=== PATIENT | female | born 1980 | race Caucasian/White ===

== ENCOUNTER 2018-03-18 10:39 | Emergency (ER) | payer OTHER, SELFPAY ==
[2018-03-18 10:40] VITALS: BP 114/80; PULSE 105; RESP 18; TEMP 38.8; O2SAT 96; BMI 24.5
--- NOTE | 2018-03-18 11:03 | RAD_ITS ---
STUDY: X-RAY CHEST REASON FOR EXAM: Female, 37 years old. Back pain. Patient not feeling well TECHNIQUE: Single AP portable view of the chest. COMPARISON: None. FINDINGS: The lungs are clear and expanded. There is no demonstrated pleural abnormality. Normal size heart. Normal mediastinum and romel. Normal visualized pulmonary arteries. Normal visualized aortic arch and descending thoracic aorta. Normal visualized thoracic spine. Normal visualized ribs, clavicles, and shoulders. There is no demonstrated abnormality of the visualized soft tissue structures of the upper abdomen. RAD/Chest 1 View (Portable) IMPRESSION: Normal x-ray examination of the chest. Electronically Signed: Tommy Villegas MD at 11:34 EST , Service support ,
--- NOTE | 2018-03-18 11:05 | ED.VISSUMM ---
- ER Visit Summary Date of Service: 03/18/18 Chief Complaint: Right back pain History of Present Illness: The patient is a 37 F who was sent from urgent care for multiple symptoms. The patient woke up at 4M with right side back pain, nausea, vomiting, chills. She has had a cough for a week. Occasional sputum. Some urinary frequency but no other urinary symptoms. No other GI symptoms. No chest pain or shortness of breath. She tried Motrin and Phenergan already with minimal relief. She did have a pulse ox at the urgent care in the 80s on room air and was febrile there. She is otherwise healthy and takes control. Non-smoker. Physical Examination: Temperature 101.8 and heart rate 105. Otherwise vital signs unremarkable. Patient is alert and oriented. She appears uncomfortable and ill but not toxic or in acute distress. HEENT exam unremarkable. Heart regular. Lungs clear in all sanchez. Abdomen soft and nontender. Right CVA slightly tender to palpation. Skin appears normal. Test Results: Rapid flu, chest x-ray, urinalysis pending. Emergency Department Course and Treatment: Patient treated with Tylenol and Zofran while awaiting results. Urine shows an infection. Cultures were sent. She was treated with a dose of Rocephin. test was negative. Patient was requesting to go home. I advised her that given she has a UTI with a fever, I was concerned for sepsis. I did check blood work and gave her a liter of fluids. Her white count is 14, her potassium is 3.2 and BUN is 21. I reevaluated the patient, and she is feeling better. I explained that she has signs of sepsis. Sepsis can progress and become lethal. Patient voiced understanding and agreement. She would like to go home to attend family duties. She understands the risks. I advised her that we would start her on antibiotics. We will check a culture. She should return if she is getting sicker or having any problems. She would need reevaluation and possibly admission. Patient agreed and continued to decline admission. Treatment Plan: As above Disposition: Discharge Impression: 1. Acute right pyelonephritis This note was generated with [employer] software. It may contain incorrect words, spelling, and punctuation that were not noted in review of the chart prior to signing ED Disposition - Plan for ED Patient: Chief Complaint: Fever Referrals: Nuris Corona MD [STAFF PHYSICIAN] -
[2018-03-18] MEDS: Acetaminophen 500 MG Tablet 1000 MG PO (11:21)
[2018-03-18] MEDS: Ondansetron ODT 4 MG Tablet 8 MG PO (11:22)
[2018-03-18 11:33] LABS: Mucous, Urine 0 SEEN /hpf (<or=2+); Red Blood Cells-Urine 0 SEEN /hpf (0-5)
[2018-03-18 11:36] LABS: Color, Urine Yellow (Yellow); Glucose, Dipstick Normal (Normal); Ketone-Dipstick 15 mg/dl (Negative); Leukocyte Esterase-Dipstick 500 /ul (Negative); Nitrite-Dipstick Positive (Negative); Occult Blood-Urine 250 /ul (Negative); Protein-Dipstick 30 mg/dl (Negative); Specific Gravity, Urine 1.015 (1.002-1.030); Urine Bilirubin Dipstick Negative (Negative); Urine Clarity Cloudy (Clear); Urine Urobilinogen Normal (Normal)
[2018-03-18 11:42] LABS: Bacteria 3+ /hpf (None Seen); Squamous Epithelial Cells - UA 5-10 SEEN /hpf (5-10); White Blood Cells 50-100 SEEN /hpf (0-5)
[2018-03-18 11:43] LABS: Internal QC Validated? YES +Cl - CLEAR BKGD; Pregnancy, Urine Negative Negative
[2018-03-18 12:17] VITALS: TEMP 38.3
[2018-03-18] MEDS: traMADol 50 MG Tablet PO (12:34)
[2018-03-18] MEDS: Ceftriaxone 1 GM/50 ML BAG IV (13:15)
[2018-03-18] MEDS: 0.9% Normal Saline 1,000 ML 999 ML IV (13:15)
[2018-03-18 13:16] LABS: Absolute Lymphocyte Count 0.24 X10^3/ul (0.83-4.51); Absolute Neutrophil Count 12.7 X10^3/uL (2.0-7.7); Basophil# 0.01 X10^3/uL; Basophil% 0.1 % (0-1); Differential Indicated SCAN CRITERIA MET; Hematocrit 36.6 % (37-47); Hemoglobin 12.4 g/dl (12.0-15.0); Lymphocyte # 0.24 X10^3/ul (4.0); Lymphocyte % 1.7 % (19-41); Mean Corp Hgb Conc 33.9 g/gl (32-36); Mean Corpuscular Hgb 28.8 pg (27.0-32.0); Mean Corpuscular Volume 84.9 fL (81-99); Mean Platelet Vol. 9.5 fl (6.2-12.0); Monocyte# 1.08 X10^3/uL; Monocyte% 7.7 % (0-10); Neutrophil # 12.66 X10^3/uL (2.7-7.7); Neutrophil % 90.2 % (47-70); POSITIVE COUNT NO; POSITIVE DIFFERENTIAL YES; POSITIVE MORPHOLOGY NO; Platelet Count 216 K/mm3 (150-450); RBC Distribution Width CV 12.5 % (11.6-14.6); Red Blood Count 4.31 M/mm3 (4.2-5.4)
[2018-03-18 13:27] LABS: Anion Gap 9 (5-15); BUN 21 mg/dL (7-18); BUN/Creat Ratio 23.6 RATIO (10-20); Calcium,Total 8.8 mg/dL (8.5-10.1); Chloride 105 mmol/L (98-107); Creatinine, Serum 0.89 mg/dL (0.55-1.02); EST Glomerular Filtration Rate 75 mL/min (>60); Est Glom Filt Rate - Afr Amer 91 mL/min (>60); Estimated Creatinine Clearance 61.56 ml/min; Glucose 98 mg/dL (74-106); Potassium 3.2 mmol/L (3.5-5.1); Sodium Level 139 mmol/L (136-145)
--- NOTE | 2018-03-18 13:51 | ED.DEP ---
ED Disposition - Plan for ED Patient: Chief Complaint: Fever Instructions: Discharge Instructions for Pyelonephritis Prescriptions: Nitrofurantoin Macrocrystals [Macrobid] 100 mg PO Q12 #14 cap Referrals: Nuris Corona MD [STAFF PHYSICIAN] -
[2018-03-18 14:16] VITALS: BP 118/64; PULSE 72; RESP 16; TEMP 37.2; O2SAT 100
--- OUTSIDE RECORDS SUMMARY | 2018-05-11 22:54 | XMS RPT_ITS ---
:1980 Author Organization [facility] Care Team Providers Name Role Phone Nigel Power Attending Unavailable Julianne Medina Primary Care Unavailable PROBLEMS PROBLEMS No Problem Records FoundPROCEDURES PROCEDURES No Procedure Records FoundRESULTS RESULTS DISCHARGE INSTRUCTION Observed: 03/18/2018 Status: F Source: [place] 4:54 PM [facility] REPOSITORY [facility] Medical Records Department [address] [place] [address] Discharge Instruction 03/18/18 1351 MR#: [id number] Acct: [id number] Name: REMA BARKSDALE Rep #: [id number] : 1980 37 From: Nigel Power MD PCP: Julianne Medina DO Status: DEP ER ED Disposition - Plan for ED Patient: Chief Complaint: Fever Instructions: Discharge Instructions for Pyelonephritis Prescriptions: Nitrofurantoin Macrocrystals [Macrobid] 100 mg PO Q12 #14 cap Referrals: Nuris Corona MD [STAFF PHYSICIAN] - What to do if you have Problems For any increased pain, shortness of breath, bleeding, nausea or vomiting, chest pain, or any unexpected problems, contact your Primary Care Provider. Call [facility] ([phone]) or report to the closest Emergency Room. Call 911 if necessary. 03/18/18 2768 <Electronically signed by Nigel Power MD> Date Nigel Power MD Cosigner Signature (If Indicated): Date CC: Julianne Medina DO EMERGENCY DEPARTMENT Observed: 03/18/2018 Status: F Source: [place] SUMMARY 4:54 PM [facility] REPOSITORY [facility] Medical Records Department [address] [place] [address] Emergency Department Summary 03/18/18 1105 MR#: [id number] Acct: [id number] Name: REMA BARKSDALE Rep #: [id number] : 1980 37 From: Nigel Power MD PCP: Julianne Medina DO Status: DEP ER - ER Visit Summary Date of Service: 03/18/18 Chief Complaint: Right back pain History of Present Illness: The patient is a 37 F who was sent from urgent care for multiple symptoms. The patient woke up at 4M with right side back pain, nausea, vomiting, chills. She has had a cough for a week. Occasional sputum. Some urinary frequency but no other urinary symptoms. No other GI symptoms. No chest pain or shortness of breath. She tried Motrin and Phenergan already with minimal relief. She did have a pulse ox at the urgent care in the 80s on room air and was febrile there. She is otherwise healthy and takes control. Non-smoker. Physical Examination: Temperature 101.8 and heart rate 105. Otherwise vital signs unremarkable. Patient is alert and oriented. She appears uncomfortable and ill but not toxic or in acute distress. HEENT exam unremarkable. Heart regular. Lungs clear in all sanchez. Abdomen soft and nontender. Right CVA slightly tender to palpation. Skin appears normal. Test Results: Rapid flu, chest x-ray, urinalysis pending. Emergency Department Course and Treatment: Patient treated with Tylenol and Zofran while awaiting results. Urine shows an infection. Cultures were sent. She was treated with a dose of Rocephin. test was negative. Patient was requesting to go home. I advised her that given she has a UTI with a fever, I was concerned for sepsis. I did check blood work and gave her a liter of fluids. Her white count is 14, her potassium is 3.2 and BUN is 21. I reevaluated the patient, and she is feeling better. I explained that she has signs of sepsis. Sepsis can progress and become lethal. Patient voiced understanding and agreement. She would like to go home to attend family duties. She understands the risks. I advised her that we would start her on antibiotics. We will check a culture. She should return if she is getting sicker or having any problems. She would need reevaluation and possibly admission. Patient agreed and continued to decline admission. Treatment Plan: As above Disposition: Discharge Impression: 1. Acute right pyelonephritis This note was generated with [employer] dictation software. It may contain incorrect words, spelling, and punctuation that were not noted in review of the chart prior to signing ED Disposition - Plan for ED Patient: Chief Complaint: Fever Referrals: Nuris Corona MD [STAFF PHYSICIAN] - What to do if you have Problems For any increased pain, shortness of breath, bleeding, nausea or vomiting, chest pain, or any unexpected problems, contact your Primary Care Provider. Call [facility] ([phone]) or report to the closest Emergency Room. Call 911 if necessary. 03/18/18 1654 <Electronically signed by Nigel Power MD> Date Nigel Power MD Cosigner Signature (If Indicated): Date CC: Julianne Medina DO CBC W/DIFF, AUTOMATED Collected: 03/18/2018 Status: F Source: [place] 1:06 PM [facility] REPOSITORY TYPE CODE TESTS RESULT OUT OF RANGE REFERENCE UNITS LAB L100.1000 4.4-11.0 K/mm3 High WBC 14.0 LAB L100.1200 4.2-5.4 M/mm3 Normal RBC 4.31 LAB L100.1300 12.0-15.0 g/dl Normal HGB 12.4 LAB L100.1400 37-47 % Low HCT 36.6 LAB L100.1500 81-99 fL Normal MCV 84.9 LAB L100.1600 27.0-32.0 pg Normal MCH 28.8 LAB L100.1700 32-36 g/gl Normal MCHC 33.9 LAB L100.1810 11.6-14.6 % Normal RDW CV 12.5 LAB L100.1820 35.1-43.9 fl Normal RDW SD 38.0 LAB L100.1900 150-450 K/mm3 Normal PLT 216 LAB L100.2000 6.2-12.0 fl Normal MPV 9.5 LAB L100.2100 47-70 % High NEUT% 90.2 LAB L100.2200 19-41 % Low LY% 1.7 LAB L100.2300 0-10 % Normal MONO% 7.7 LAB L100.2400 0-5 % Normal EO% 0.0 LAB L100.2500 0-1 % Normal BASO% 0.1 LAB L100.2550 0.0-0.9 % Normal IM GRAN % 0.300 Result Comment: IG% - Immature Granulocytes (promyelocytes, myelocytes and metamyelocytes) > 1% indicates that a LEFT SHIFT is Present. LAB L100.2620 2.0-7.7 X10 3/uL High Absolute Neut 12.7 LAB L100.2720 0.83-4.51 X10 3/ul Low Absolute Lymph 0.24 Performed By: #### L100.0100 #### [facility] [address] [place], [place] [address]all [facility]. [place], [place], [address] BASIC METABOLIC Collected: 03/18/2018 Status: F Source: [place] PROFILE (BMP) 1:06 PM [facility] REPOSITORY TYPE CODE TESTS RESULT OUT OF RANGE REFERENCE UNITS LAB L501.0100 74-106 mg/dL Normal GLU 98 Result Comment: Please note revised GLUCOSE reference range effective 2017. LAB L501.1000 7-18 mg/dL High BUN 21 LAB L501.1100 0.55-1.02 mg/dL Normal CREAT,SERUM 0.89 Result Comment: The validity of the calculated GFR AND GFRAA in patients over 70 years has not been determined. Clinical correlation is essential. LAB L501.1110 >60 mL/min Normal EST GFR 75 Result Comment: Non- GFR Calc LAB L501.1115 >60 mL/min Normal EST GFR - AA 91 Result Comment: GFR Calc LAB L501.1255 ml/min Normal Estimated CRCL 61.56 LAB L501.1300 10-20 RATIO High BUN/CRE 23.6 LAB L501.2200 8.5-10 mg/dL Normal .1 CA 8.8 LAB L501.5300 136-14 mmol/L Normal 5 NA 139 LAB L501.5600 3.5-5. mmol/L Low 1 K 3.2 LAB L501.5900 98-107 mmol/L Normal CL 105 LAB L501.6100 21.0-3 mmol/L Normal 2.0 CO2 25.0 LAB L501.6200 5-15 Normal GAP 9 Performed By: #### L500.2500 #### [facility] [address] [facility]. [place], [place], [address] Observed: 03/18/2018 Status: F Source: [place] INFLUENZA A+B (RAPID 11:30 AM [facility] JASPREET) REPOSITORY FLU A/B Rapid Negative test results should be confirmed by culture. Order Rapid Viral Culture for Influenzae A+B ([id number]) if clinically indicated. Influenza Ag, Direct Presumptive NEGATIVE for Influenza A/B Antigen (See Note) Performed By: #### M101.0101 #### [facility] [address] [facility] [place], [address] URINALYSIS, COMPLETE Collected: 03/18/2018 Status: F Source: [place] 11:28 AM [facility] REPOSITORY Order Comment: How was Urine Obtained? OUTSIDE MACHINIST HELPER TO SPECIFY TYPE CODE TESTS RESULT OUT OF RANGE REFERENCE UNITS LAB L400.3000 Yellow COLOR Normal Yellow LAB L400.3050 Clear Normal CLARITY Cloudy LAB L400.3200 Normal mg/dl Normal GLUCOSE, UR Normal LAB L400.3300 Negative mg/dL Normal BILIRUBIN URINE Negative LAB L400.3400 Negative mg/dl High 15 KETONE UR LAB L400.3465 1.002-1.030 Normal SP.GR. DIPSTX 1.015 LAB L400.3550 5.0 - 8.0 pH UR Normal 9.0 LAB L400.3600 Negative mg/dl High PROT 30 DIPSTX LAB L400.3700 Normal mg/dl Normal UROBILI Normal LAB L400.3750 Negative High NITRITE UR Positive LAB L400.3780 Negative /ul High OCCULT BLOOD-UR 250 LAB L400.3800 Negative /ul High LEUK ESTERASE 500 LAB L400.4050 0-5 /hpf WBC Normal 50-100 SEEN LAB L400.4100 0-5 /hpf 0 Normal RBC-UA SEEN LAB L400.4150 5-10 /hpf SQUAM Normal EPI 5-10 SEEN LAB L400.4300 None Seen /hpf 3+ Normal BACTERIA LAB L400.4350 <or=2+ /hpf 0 Normal MUCUS, URINE SEEN Performed By: #### L400.0001, L400.7600 #### [facility] [address] [place], [address] ,URINE Collected: 03/18/2018 Status: F Source: [place] 11:28 AM [facility] REPOSITORY Order Comment: How was Urine Obtained? OUTSIDE MACHINIST HELPER TO SPECIFY TYPE CODE TESTS RESULT OUT OF REFERENCE UNITS RANGE LAB L400.8000 Negative Normal HCGUQUAL Negative Result Comment: Very dilute urine specimens, as indicated by a low specific gravity, may not contain premium representative levels of hCG. If is still suspected, a first morning urine specimen should be collected 48 hours later and tested. Performed By: #### L400.0001, L400.7600 #### [facility] [address] [facility] [place], [address] Observed: 03/18/2018 Status: F Source: [place] CULTURE, URINE 11:28 AM [facility] REPOSITORY Order Date: 03/18/18 Urine Culture ORGANISM 1: Proteus mirabilis Cunningham Count >100,000 Proteus mirabilis: REACTION Amoxacillin/Clavulanic Acid $ <=2 S Ampicillin $ <=2 S Ampicillin/Sulbactam $ <=2 S Cefazolin $ <=4 S Cefepime $ <=1 S Ceftriaxone $ <=1 S Ciprofloxacin $ 1 S Ertapenim $$$ <=0.5 S Gentamicin $ <=1 S Levofloxacin $ 1 S Nitrofurantoin $ 64 R Piperacillin/Tazobactam $$ <=4 S Tobramycin $ <=1 S Trimethoprim/Sulfametho $ <=20 S (NF) indicates non-formulary drug at [facility]. Approval by Infectious Disease Specialist required before non-formulary drugs may be ordered and/or dispensed. Performed By: #### M100.0650 #### [facility] [address] [place], [address] CHEST 1 VIEW Observed: 03/18/2018 Status: F Source: [place] (PORTABLE) 11:04 AM [facility] REPOSITORY [facility] Imaging Services [address] [place] [address] Chest 1 View (Portable) MR#: [id number] Acct: [id number] Name: REMA BARKSDALE Rep #: [id number] : 1980 F 37 From: Tommy Villegas MD PCP: Julianne Medina DO Status: REG ER Study: Chest 1 View (Portable) Date of Exam: 03/18/18 Exam# [id number] Ordering Dr: Nigel Power MD STUDY: X-RAY CHEST REASON FOR EXAM: Female, 37 years old. Back pain. Patient not feeling well TECHNIQUE: Single AP portable view of the chest. COMPARISON: None. FINDINGS: The lungs are clear and expanded. There is no demonstrated pleural abnormality. Normal size heart. Normal mediastinum and romel. Normal visualized pulmonary arteries. Normal visualized aortic arch and descending thoracic aorta. Normal visualized thoracic spine. Normal visualized ribs, clavicles, and shoulders. There is no demonstrated abnormality of the visualized soft tissue structures of the upper abdomen. RAD/Chest 1 View (Portable) IMPRESSION: Normal x-ray examination of the chest. Electronically Signed: Tommy Villegas MD at 11:34 EST , Service support , CC: Nigel Power MD; Julianne Medina DO Direct Support Specialist: Signed ALLERGIES ALLERGIES DATE TYPE / CODE NAME / CODE REACTION SEVERITY SOURCE 03/18/2018 Drug No Known Unknown Liv [facility] Allergy/4160 Allergies/F00 [facility] [address](SNOMED [id number](RXNOR Repository CT) M) ENCOUNTERS ENCOUNTERS ADMIT/DISCHARGE ACCOUNT ADMITTING ENCOUNTER LOCATION SOURCE NUMBER CLASS 03/18/2018/ [id number] Emergency Liv [place] [facility] ing:ED Repository PAYERS PAYERS ENCOUNTER GUARANTOR PAYER SUBSCRIBER SOURCE 03/18/2018 REMA L Primary REMA L [place] [address] Insurance:AETNADread [place]: [place] Number: [id number] [facility] [address]Ibm: [phone] [id number] Repository [phone] () Date:[id number] [id number] ALEENA WHITE [id number]: 03/18/2018 Secondary NOT GIVENUNK Liv Insurance:SELF PAY [facility] Number: Effective Repository Date:2018-03-18
== END 2018-03-18 14:17 | disposition home or self-care (01) ==
LOC: ED 11:13
PROVIDERS: Emergency Provider Emergency Medicine; Family Provider Family Medicine; PCP Family Medicine
DX: N10 Acute pyelonephritis (principal); R05 Cough
CPT/HCPCS: 71045; 80048; 81001; 81025; 85025; 87077; 87086; 87088; 87186; 87804; 96365; 99282; J7030